=== PATIENT | female | born 1965 | race Caucasian/White ===

== ENCOUNTER 2018-05-10 12:34 | Emergency (ER) | payer OTHER ==
[~2018-05-10] VITALS: Wt 68.1 kg
[2018-05-10 12:42] VITALS: BP 140/86; PULSE 102; RESP 16
[2018-05-10] MEDS ORDERED: ACETAMINOPHEN 325 MG TAB PO ONE (13:30)
[2018-05-10] MEDS ORDERED: IBUP-1542 PO (15:16)
--- NOTE | 2018-05-10 15:19 | ERD ---
ER Documentation Chief Complaint Chief Complaint R knee pain x2d. denies trauma. amb w limp. HPI 53-year-old female presents with pain in the right knee and right calf. She denies any history of trauma. She denies any fevers, redness, bleeding, restricted range of motion weakness. She was referred by primary doctor for evaluation for DVT. ROS All systems reviewed and are negative except as per history of present illness. Medications Home Meds Active Scripts Ibuprofen* (Motrin*) 600 Mg Tab, 600 MG PO Q6, #20 TAB Prov:DENIZ BUTLER MD 05/10/18 Allergies Allergies: Coded Allergies: No Known Allergy (Unverified , 05/10/18) PMhx/Soc Medical and Surgical Hx: pt denies Medical Hx History of Surgery: Yes (C/S) Anesthesia Reaction: No Hx Alcohol Use: No Hx Substance Use: No Hx Tobacco Use: No Smoking Status: Never smoker FmHx Family History: No diabetes, No coronary disease, No other Physical Exam Vitals Vital Signs Date Temp Pulse Resp B/P (MAP) Pulse Ox O2 O2 Flow FiO2 Time Delivery Rate 05/10/18 98.0 102 16 140/86 99 12:42 (104) Physical Exam Const: No acute distress Head: Atraumatic Eyes: Normal Conjunctiva ENT: Normal External Ears, Nose and Mouth. Neck: Full range of motion. No meningismus. Resp: Clear to auscultation bilaterally Cardio: Regular rate and rhythm, no murmurs Abd: Soft, non tender, non distended. Normal bowel sounds Skin: No petechiae or rashes Back: No midline or flank tenderness Ext: No cyanosis, or edema. Multiple varicosities in the right calf area. No warmth, erythema. No exquisite tenderness to the right calf. No restricted range of motion weakness. Neur: Awake and alert Psych: Normal Mood and Affect Results 24 hrs Current Medications Medications Dose Sig/Brock Start Time Status Last (Trade) Ordered Route PRN Stop Time Admin Dose Reason Admin 650 mg ONCE ONCE 05/10/18 DC 05/10/18 Acetaminophen PO 13:30 05/10/18 13:14 (Tylenol 13:31 Tab) Procedures/MDM EKG: Rate/Rhythm: Normal Sinus Rhythm. Rate equals 76 QRS, ST, T-waves: No changes consistent w/ acute ischemia Impression-normal EKG Impression: No evidence of ischemia or arrhythmia x-ray right knee 3V Interpreted by me: Bones: No fracture Joints: No dislocation Foreign body: None. Impression-normal right knee x-ray Right lower extremity Doppler negative for DVT. Patient presents with right lower extremity pain and swelling multiple varicosities. She likely has symptomatic varicose veins. There is no current signs or symptoms of ischemia, deficits, cellulitis, DVT, additional complications. She will be discharged home with a prescription of ibuprofen, instructions for compression stockings, elevation, primary care follow-up and return precautions. The patient was stable with no new complaints during the ER course. Clinically, there is no current evidence to suggest meningitis, sepsis, acute abdomen, pneumonia, stroke, acute coronary syndrome, pulmonary embolism, aortic dissection or any other emergent condition appearing to require further evaluation or hospitalization. Patient counseled regarding my diagnostic impression and care plan. Prior to discharge all questions answered. Pt agrees with treatment plan and understands strict return precautions. Pt is instructed to follow up with primary care provider within 24-48 hours. Precautionary instructions provided including instructions to return to the ER if not improving or for any worsening or changing symptoms or concerns. Departure Diagnosis: Primary Impression: Pain of right leg Condition: Stable Patient Instructions: Varicose Veins Referrals: NO PRIMARY,CARE PHYSICIAN (PCP) Additional Instructions: X-ray normal and ultrasound showed no blood clots. Elevate at home. Recommend compression stockings. Recheck for fevers, redness, new worsening symptoms with primary care doctor. DENIZ BUTLER MD May 10, 2018 15:19
== END 2018-05-10 15:28 | disposition home or self-care (01) ==
LOC: FTE 12:34
DX: M79.604 Pain in right leg (principal)
CPT/HCPCS: 73562; 93005; 93971